=== PATIENT | female | born 1980 | race Caucasian/White ===

== ENCOUNTER 2016-04-24 18:32 | Emergency (ER) | payer OTHER ==
[2016-04-24 20:22] VITALS: RESP 18; TEMP 98.3
--- NOTE | 2016-04-24 20:45 | ED ---
General Adult HPI - General Chief complaint: Fall Stated complaint: fall 15 stairs Time Seen by Provider: 04/24/16 20:32 Source: patient, RN notes reviewed Mode of arrival: ambulatory Limitations: no limitations - History of Present Illness Initial comments: Patient 36-year-old female who presents emergency room today with a chief complaint of a fall that occurred earlier today. She does admit that she try to let her dog out when she tripped falling down approximately 15 steps. She states she tumbled. States were the bottom she did hit her head and lost consciousness for a brief second. Does admit to headache and some neck pain. Admits to some left shoulder pain is worse with movements. Admits to some pain underneath to the left ribs. Also admits to some back pain both upper and lower. States all the symptoms are worse with movements. She denies any other complaints or associated symptoms. Patient denies any recent fever, chills, shortness of breath, chest pain, abdominal pain, nausea or vomiting, numbness or tingling, dysuria or hematuria, constipation or diarrhea, visual changes, or any other complaints. - Related Data Previous Rx's Medication Instructions Recorded Hydrocodone/Acetaminophen [[place] 1 each PO Q6HR PRN #20 tab 04/24/16 5-325] Allergies Allergy/AdvReac Type Severity Reaction Status Date / Time NSAIDS (Non-Steroidal Allergy Anaphylaxis Verified 04/24/16 21:23 Anti-Inflamma Penicillins Allergy Anaphylaxis Verified 04/24/16 21:23 Review of Systems ROS Statement: Those systems with pertinent positive or pertinent negative responses have been documented in the HPI. ROS Other: All systems not noted in ROS Statement are negative. Past Medical History Past Medical History: No Reported History History of Any Multi-Drug Resistant Organisms: None Reported Past Surgical History: Appendectomy, Section Additional Past Surgical History / Comment(s): d&c Past Psychological History: ADD/ADHD, Bipolar, Depression Smoking Status: Current every day smoker Past Alcohol Use History: None Reported Past Drug Use History: None Reported General Exam - General Exam Comments Initial Comments: General: The patient is awake and alert, in no distress, and does not appear acutely ill. Eye: Pupils are equal, round and reactive to light, extra-ocular movements are intact. No nystagmus. There is normal conjunctiva bilaterally. No signs of icterus. Ears, nose, mouth and throat: There are moist mucous membranes and no oral lesions. Neck: The neck is supple, there is no tenderness or JVD. Cardiovascular: There is a regular rate and rhythm. No murmur, rub or gallop is appreciated. Respiratory: Lungs are clear to auscultation, respirations are non-labored, breath sounds are equal. No wheezes, stridor, rales, or rhonchi. Gastrointestinal: Soft, non-distended, non-tender abdomen without masses or organomegaly noted. There is no rebound or guarding present. No CVA tenderness. Bowel sounds are unremarkable. Musculoskeletal: Normal appearance of cervical, thoracic, lumbar spine. No step-offs forms appreciated. Patient diffusely tender throughout cervical, thoracic, lumbar. Increased paravertebral tenderness both on left right sides throughout normal appearance of the shoulder obvious deformity. She is decreased range of motion with extension and abduction. Patient tender to palpation both to the anterior and posterior aspects. No tenderness down to the left elbow or left wrist. Strength 5/5 in all other areas of the left shoulder. Sensation intact. Pulses equal bilaterally 2+. Neurological: A&O x 3. CN II-XII intact, There are no obvious motor or sensory deficits. Coordination appears grossly intact. Speech is normal. Skin: Skin is warm and dry and no rashes or lesions are noted. Psychiatric: Cooperative, appropriate mood & affect, normal judgment. Limitations: no limitations Course Vital Signs 04/24/16 20:18 Temperature 98.3 F Pulse Rate 83 Respiratory 18 Rate Blood Pressure 136/87 O2 Sat by Pulse 98 Oximetry Medical Decision Making - Medical Decision Making Patient's CT of the head and neck are negative for any acute abnormalities. Patient's x-rays of the chest, left shoulder, thoracic and lumbar spine also negative. Patient will be discharged home with pain medication. Patient advised follow-up family doctor return if any symptoms increase or worsen or for any other concerns. Disposition Clinical Impression: Fall, Contusion, Rib contusion, Back pain Disposition: HOME SELF-CARE Condition: Good Instructions: Rib Contusion (ED) Additional Instructions: Please use medication as discussed. Please follow-up with family doctor in the next 2 days of symptoms have not improved. Please return to emergency room if the symptoms increase or worsen or for any other concerns. Prescriptions: Hydrocodone/Acetaminophen [[place]field 5-325] 1 each PO Q6HR PRN #20 tab PRN Reason: Pain Time of Disposition: 21:37
--- NOTE | 2016-04-24 21:26 | XR ---
EXAMINATION TYPE: XR chest 2V DATE OF EXAM: 04/24/2016 9:14 PM COMPARISON: NONE HISTORY: Chest pain TECHNIQUE: Frontal and lateral views of the chest are obtained. FINDINGS: There is no focal air space opacity. No evidence for pnuemothorax.No pleural effusion. The cardiac silhouette size is within normal limits. The osseous structures are grossly intact. IMPRESSION: 1. No acute cardiopulmonary process.
--- NOTE | 2016-04-24 21:27 | XR ---
EXAMINATION TYPE: XR thoracic spine complete DATE OF EXAM: 04/24/2016 9:15 PM CLINICAL HISTORY: pain TECHNIQUE: Frontal, lateral, and swimmer's view of thoracic spine are obtained. COMPARISON: None. FINDINGS: Thoracic spine show satisfactory alignment without evidence of acute fracture or dislocatio n. Vertebral body heights are preserved. Disc spaces are well preserved. Visualized ribs are unrem arkable. IMPRESSION: No acute fracture or dislocation is seen in the thoracic spine. ICD 10 NO FRACTURE, INIT IAL EVALUATION
--- NOTE | 2016-04-24 21:27 | XR ---
EXAMINATION TYPE: XR lumbar spine 2 or 3V DATE OF EXAM: 04/24/2016 9:15 PM CLINICAL HISTORY: pain TECHNIQUE: Three views of the lumbar spine are submitted. COMPARISON: None. FINDINGS: There are 5 lumbar type vertebral bodies identified. The lumbar spine shows satisfactory alignment w ithout evidence of acute fracture or dislocation. Vertebral body heights are within normal limits. Disc spaces are within normal limits. The overlying soft tissue appears unremarkable. IMPRESSION: No acute fracture or dislocation is seen in the lumbar spine. ICD 10 NO FRACTURE, INITIAL EVALUATION
--- NOTE | 2016-04-24 21:28 | XR ---
EXAMINATION TYPE: XR shoulder complete LT DATE OF EXAM: 04/24/2016 9:15 PM CLINICAL HISTORY: pain COMPARISON: NONE TECHNIQUE: Three views of the left shoulder are obtained. FINDINGS: There is no acute fracture/dislocation evident. The acromioclavicular and glenohumeral soraya int spaces appear within normal limits. The visualized ribs are intact and unremarkable. IMPRESSION: 1. There is no acute fracture or dislocation. ICD 10 NO FRACTURE, INITIAL EVALUATION
--- NOTE | 2016-04-24 21:30 | CT ---
EXAMINATION TYPE: CT brain kayode nino con DATE OF EXAM: 04/24/2016 9:25 PM COMPARISON: NONE HISTORY: neck and back pain post fall CT DLP: [address] Brain: Unenhanced CT of the brain was performed. The ventricles, basal cisterns and sulci overlyi ng the cerebral convexities demonstrate a normal appearance. There is no evidence for intracranial h emorrhage or sulcal effacement. No mass effects are seen. If symptoms persist consider MRI. Osseou s calvarium is intact. IMPRESSION: No acute intracranial process CT Cervical Spine: Unenhanced CT of the cervical spine was performed with bone and soft tissue windo w settings submitted. Coronal and sagittal reconstruction is obtained. There is normal alignment an d prevertebral soft tissues. I do not see evidence for fracture or subluxation. No significant dege nerative changes are present. The lung apices are clear. IMPRESSION: No evidence for acute fracture or subluxation of the cervical spine.
[2016-04-24] MEDS ORDERED: HYDROcodone/APAP 5-325MG 1 EACH TAB PO STA (21:41)
[2016-04-24 22:22] VITALS: BP 108/57; PULSE 72
== END 2016-04-24 22:20 | disposition home or self-care (01) ==
LOC: EC 18:32
DX: M54.9 Dorsalgia, unspecified (principal); S20.219A Contusion of unspecified front wall of thorax, initial encounter; M54.2 Cervicalgia; M25.512 Pain in left shoulder; M54.5 Low back pain; R51 Headache; Z88.0 Allergy status to penicillin; Z88.8 Allergy status to other drugs, medicaments and biological substances; F17.200 Nicotine dependence, unspecified, uncomplicated; W10.9XXA Fall (on) (from) unspecified stairs and steps, initial encounter; Y93.89 Activity, other specified; S06.9X1A Unspecified intracranial injury with loss of consciousness of 30 minutes or less, initial encounter
CPT/HCPCS: 70450; 71020; 72072; 72100; 72125; 99284

== ENCOUNTER 2017-03-04 13:20 | Emergency (ER) | payer OTHER ==
[2017-03-04 13:45] VITALS: BP 134/79; PULSE 87; RESP 18; TEMP 99.1
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
[2017-03-04] MEDS ORDERED: ORPHENADRINE 30 MG/ML 2 ML VIAL IM STA (15:28)
== END 2017-03-04 15:41 | disposition home or self-care (01) ==
LOC: EC 13:20
DX: S16.1XXA Strain of muscle, fascia and tendon at neck level, initial encounter (principal); J32.9 Chronic sinusitis, unspecified; F17.200 Nicotine dependence, unspecified, uncomplicated; Z88.6 Allergy status to analgesic agent; Z88.0 Allergy status to penicillin; V48.6XXA Car passenger injured in noncollision transport accident in traffic accident, initial encounter; Y92.410 Unspecified street and highway as the place of occurrence of the external cause
CPT/HCPCS: 72125; 70450; 99284; 96372; J2360

== ENCOUNTER 2018-09-26 17:09 | Emergency (ER) | payer OTHER ==
[2018-09-26 17:17] VITALS: BP 123/81; PULSE 98; RESP 16; TEMP 98.5
[2018-09-26] MEDS ORDERED: ACETAMINOPHEN TAB 500 MG TAB PO STA (17:51)
--- NOTE | 2018-09-26 17:51 | ED ---
Fall HPI - General Chief Complaint: Fall Stated Complaint: fell/hit head Time Seen by Provider: 09/26/18 17:18 Source: patient Mode of arrival: wheelchair - History of Present Illness Initial Comments: patient is a 38-year-old female presenting to the emergency department with her after falling off of one step about an hour ago. Patient states she went to step up on her porch and slipped and fell forward onto her head. Patient is complaining of a headache and a sore neck. Patient's fall was witnessed by her who states she did not lose consciousness. Patient denies LOC, nausea, vomiting, changes in vision, numbness/tingling. Patient denies any other injuries at this time. - Related Data Previous Rx's Medication Instructions Recorded Hydrocodone/Acetaminophen [[place] 1 each PO Q6HR PRN #20 tab 04/24/16 5-325] Azithromycin [Zithromax Z-pack] 0 mg PO DIRECTED #6 tab 03/04/17 Fluticasone Propionate [Flonase 1 - 2 spray EA NOSTRIL DAILY 5 03/04/17 Allergy Relief] Days ml Orphenadrine [Norflex] 100 mg PO Q12H #20 tablet.er 03/04/17 Allergies Allergy/AdvReac Type Severity Reaction Status Date / Time NSAIDS (Non-Steroidal Allergy Anaphylaxis Verified 09/26/18 17:17 Anti-Inflamma Penicillins Allergy Anaphylaxis Verified 09/26/18 17:17 Review of Systems ROS Statement: Those systems with pertinent positive or pertinent negative responses have been documented in the HPI. ROS Other: All systems not noted in ROS Statement are negative. Past Medical History Past Medical History: No Reported History History of Any Multi-Drug Resistant Organisms: None Reported Past Surgical History: Appendectomy, Section Additional Past Surgical History / Comment(s): d&c Past Psychological History: ADD/ADHD, Bipolar, Depression Smoking Status: Current every day smoker Past Alcohol Use History: None Reported Past Drug Use History: None Reported General Exam - General Exam Comments Initial Comments: GENERAL: Well-appearing, well-nourished and in no acute distress. HEAD: Atraumatic, normocephalic. Small hematoma on the right forehead with small abrasion. EYES: Pupils equal round and reactive to light, extraocular movements intact, sclera anicteric, conjunctiva are normal. ENT: TMs normal, nares patent, oropharynx clear without exudates. Moist mucous membranes. NECK: Normal range of motion, supple without lymphadenopathy or JVD. Cervical soreness with palpation of the paraspinals. Patient has full range of motion of the neck. LUNGS: Breath sounds clear to auscultation bilaterally and equal. No wheezes rales or rhonchi. HEART: Regular rate and rhythm without murmurs, rubs or gallops. ABDOMEN: Soft, nontender, normoactive bowel sounds. No guarding, no rebound. No masses appreciated. : Deferred EXTREMITIES: Normal range of motion, no pitting or edema. No clubbing or cyanosis. No numbness and tingling into the upper extremities. NEUROLOGICAL: Cranial nerves II through XII grossly intact. Normal speech, normal gait. PSYCH: Normal mood, normal affect. SKIN: Warm, Dry, normal turgor, no rashes or lesions noted. Limitations: no limitations Course Vital Signs 09/26/18 17:13 Temperature 98.5 F Pulse Rate 98 Respiratory 16 Rate Blood Pressure 123/81 O2 Sat by Pulse 98 Oximetry Medical Decision Making - Medical Decision Making Patient is a 38-year-old female presenting to the ER after falling off of one st ep on her porch. Patient states she hit the front of her head and also has a sore neck. Patient's follow-up despite her . Patient denies LOC, nausea, vomiting. On exam patient has small hematoma on the right side of her forehead along with abrasion as well as a sore neck. Patient has full range of motion of her neck. Patient denies numbness and tingling into her extremities. Patient's neuro exam is normal. No imaging was indicated as patient has no focal neurological deficit, vomiting, severe headache or dangerous mechanism. Patient's abrasion on her forehead was cleaned and bandaged. It was discussed with patient and her that she likely has a mild concussion along with soreness in her neck from hitting her head. Return parameters were discussed with both patient and . Patient will be discharged home and they are okay with this plan. Patient was counseled to take Tylenol for her pain as well as muscle relaxants for her stiff neck. This is discussed with Dr. Paz. Disposition Clinical Impression: Fall, Concussion, Abrasion of head Disposition: HOME SELF-CARE Condition: Stable Instructions (If sedation given, give patient instructions): Concussion (ED) Additional Instructions: Please return to the Emergency Department if symptoms worsen or any other concerns. Is patient prescribed a controlled substance at d/c from ED?: No Referrals: None,Stated [Primary Care Provider] - 1-2 days
== END 2018-09-26 18:29 | disposition home or self-care (01) ==
LOC: EC 17:09
DX: S06.0X0A Concussion without loss of consciousness, initial encounter (principal); S00.83XA Contusion of other part of head, initial encounter; M43.6 Torticollis; F17.200 Nicotine dependence, unspecified, uncomplicated; Z88.0 Allergy status to penicillin; Z88.6 Allergy status to analgesic agent; W10.9XXA Fall (on) (from) unspecified stairs and steps, initial encounter
CPT/HCPCS: 99283